=== PATIENT | female | born 1970 | race Caucasian/White ===

== ENCOUNTER 2017-01-13 18:15 | Emergency (ER) | payer OTHER ==
[2017-01-13 18:29] VITALS: BP 122/73; PULSE 96; RESP 18; TEMP 98.5
[2017-01-13] MEDS ORDERED: TOBRAMYCIN 0.3% OPHTH DROPS 5 ML BTL RIGHT EYE STA (18:37)
--- NOTE | 2017-01-13 18:41 | ED ---
General Adult HPI - General Chief complaint: Eye Problems Stated complaint: eye pain, congestion Time Seen by Provider: 01/13/17 18:32 Source: patient, RN notes reviewed Mode of arrival: ambulatory Limitations: no limitations - History of Present Illness Initial comments: Patient 46-year-old female who presents emergency room today with chief complaint of increased drainage irritation to the right eye. States started this morning when she woke up. Does admit to yellow drainage discharge. States she's had upper respiratory symptoms over the last week. Patient does admit to positive sputum production it's been yellow in color. Patient does admit to increased rhinorrhea with a sore throat when she swallows. She denies any other complaints associated symptoms. Patient denies any recent fever, chills, shortness of breath, chest pain, back pain, abdominal pain, nausea or vomiting, numbness or tingling, dysuria or hematuria, constipation or diarrhea, headaches or visual changes, or any other complaints. - Related Data Home Medications Medication Instructions Recorded Confirmed Divalproex Sodium [Depakote] 1,500 mg PO DAILY 01/13/17 01/13/17 FLUoxetine HCL [PROzac] 40 mg PO DAILY 01/13/17 01/13/17 busPIRone HCl [Buspar] 5 mg PO BID 01/13/17 01/13/17 traZODone HCL 100 mg PO HS 01/13/17 01/13/17 Previous Rx's Medication Instructions Recorded Tobramycin 0.3% Ophth Soln [Tobrex 1 - 2 drop BOTH EYES QID 7 Days 01/13/17 0.3% Ophth Soln] guaiFENesin 400 mg PO Q4H #30 tablet 01/13/17 Allergies Allergy/AdvReac Type Severity Reaction Status Date / Time acetaminophen [From Percocet] Allergy Itching Verified 01/13/17 18:30 hydromorphone [From Dilaudid] Allergy Itching Verified 01/13/17 18:30 oxycodone [From Percocet] Allergy Itching Verified 01/13/17 18:30 Review of Systems ROS Statement: Those systems with pertinent positive or pertinent negative responses have been documented in the HPI. ROS Other: All systems not noted in ROS Statement are negative. Past Medical History Additional Past Medical History / Comment(s): SEIZURE, CHRONIC BACK PAIN. History of Any Multi-Drug Resistant Organisms: None Reported, C-DIFF Date of last positivie culture/infection: 2010 Additional Past Surgical History / Comment(s): BACK SURGERY. Past Psychological History: No Psychological Hx Reported Smoking Status: Current every day smoker Past Alcohol Use History: Abuse Past Drug Use History: Marijuana General Exam - General Exam Comments Initial Comments: General: The patient is awake and alert, in no distress, and does not appear acutely ill. Eye: Pupils are equal, round and reactive to light, extra-ocular movements are intact. No nystagmus. Increased redness erythema to the right conjunctiva with yellow drainage. No signs of icterus. Ears, nose, mouth and throat: There are moist mucous membranes and no oral lesions. Neck: The neck is supple, there is no tenderness or JVD. Cardiovascular: There is a regular rate and rhythm. No murmur, rub or gallop is appreciated. Respiratory: Lungs are clear to auscultation, respirations are non-labored, breath sounds are equal. No wheezes, stridor, rales, or rhonchi. Musculoskeletal: Normal ROM, no tenderness. Strength 5/5. Sensation intact. Pulses equal bilaterally 2+. Neurological: A&O x 3. CN II-XII intact, There are no obvious motor or sensory deficits. Coordination appears grossly intact. Speech is normal. Skin: Skin is warm and dry and no rashes or lesions are noted. Psychiatric: Cooperative, appropriate mood & affect, normal judgment. Limitations: no limitations Course Vital Signs 01/13/17 18:26 Temperature 98.5 F Pulse Rate 96 Respiratory 18 Rate Blood Pressure 122/73 O2 Sat by Pulse 97 Oximetry Medical Decision Making - Medical Decision Making Patient reexamined at this time shows no signs of stress will be treated for a acute conjunctivitis to the right eye that on antibiotic drops in the emergency room. Patient's chest x-ray reviewed and is unremarkable no sign of pneumonia. Patient will return for bronchitis infection started on Mucinex. Patient was found family doctor symptoms are improved or return here to the emergency room if any symptoms increase or worsen or for any other concerns. Disposition Clinical Impression: Acute conjunctivitis, Acute bronchitis Disposition: HOME SELF-CARE Condition: Good Instructions: Conjunctivitis (ED) Additional Instructions: Please use medication as discussed. Please follow-up with family doctor in the next 2 days of symptoms have not improved. Please return to emergency room if the symptoms increase or worsen or for any other concerns. Prescriptions: Tobramycin 0.3% Ophth Soln [Tobrex 0.3% Ophth Soln] 1 - 2 drop BOTH EYES QID 7 Days guaiFENesin 400 mg PO Q4H #30 tablet Time of Disposition: 19:07
--- NOTE | 2017-01-13 19:04 | XR ---
EXAMINATION TYPE: XR chest 2V DATE OF EXAM: 01/13/2017 6:52 PM COMPARISON: None HISTORY: 46-year-old female with cough TECHNIQUE: PA and lateral views FINDINGS: The cardiomediastinal silhouette, aorta, and pulmonary vasculature are within normal limits. Lungs an d pleural spaces are clear. IMPRESSION: No acute cardiopulmonary process.
== END 2017-01-13 19:53 | disposition home or self-care (01) ==
LOC: EC 18:15
DX: H10.31 Unspecified acute conjunctivitis, right eye (principal); J20.9 Acute bronchitis, unspecified; F17.200 Nicotine dependence, unspecified, uncomplicated; Z79.899 Other long term (current) drug therapy; Z88.5 Allergy status to narcotic agent; Z88.8 Allergy status to other drugs, medicaments and biological substances
CPT/HCPCS: 71020; 99283